=== PATIENT | male | born 1975 | race African-American/Black ===

== ENCOUNTER 2016-06-16 22:13 | Emergency (ER) | payer OTHER ==
[~2016-06-16] VITALS: Ht 175.3 cm; Wt 65.7 kg
[~2016-06-16 22:13] MED LIST: MOTRIN800 MG PO
[2016-06-16 22:39] LABS: HEMATOCRIT 42.9 % (38.0-50.0); MCH 23.3 PG (29.0-34.0); MCHC 32.6 G/DL (30.0-36.0); MCV 71.4 FL (86-99); MEAN PLAT.VOLUME 8.9 uM^3 (9.0-12.4); PLATELET COUNT 240 K/uL (156-360); RBC DIS.WIDTH-CV 15.7 % (11.8-14.6); RBC DIS.WIDTH-SD 39.9 % (39-53); RED BLOOD COUNT 6.01 M/uL (4.00-5.50); WHITE BLOOD COUNT 6.5 K/uL (4.1-10.2)
[2016-06-16 22:42] LABS: EOSINOPHIL (%) 1.1 % (0-5); EOSINOPHIL COUNT 0.1 K/uL (0-0.3); IMMATURE GRANULOCYTE (%) 0.2 % (0.0-0.7); IMMATURE GRANULOCYTE COUNT 0.1 K/uL; LYMPHOCYTE COUNT 3.2 K/uL (1.0-2.8); MONOCYTE (%) 8.6 % (3-12); MONOCYTE COUNT 0.6 K/uL (0-0.8); NEUTROPHIL (%) 40.8 % (45-76); NEUTROPHIL COUNT 2.7 K/uL (1.8-6.4)
[2016-06-16 22:49] LABS: CHLORIDE 102 mEq/L (99-109); POTASSIUM 3.9 mEq/L (3.7-5.4); SODIUM 142 mEq/L (136-147)
[2016-06-16 22:51] LABS: GLUCOSE 76 mg/dL (70-99)
[2016-06-16 22:52] LABS: ANION GAP 11 MEQ/L (2-14)
[2016-06-16 22:53] LABS: TOTAL BILIRUBIN 1.1 mg/dL (0.0-1.0)
[2016-06-16 22:54] LABS: SERUM ETHYL ALCOHOL < 10 mg/dL
[2016-06-16 22:54] LABS: BASE EXCESS 3.2 mEq/L (-3 to +3); BICARBONATE 28.5 mEq/L (22-26); CARBOXY HGB 4.2 % (0-5); COMMENTS - BLOOD GASES NAC+MD AWARE; FI02 21 %; METHEMOGLOBIN 0.8 % (0-1.5); PCO2 45 mm Hg (35-45); PO2 102 mm Hg (80-100); SITE LR; TOTAL RESP RATE 14 resp/min; pH 7.41 (7.35-7.45)
[2016-06-16 22:55] LABS: ALKALINE PHOSPHATASE 61 IU/L (3-129); GFR ESTIMATE (CALCULATED) > 59 mL/min/
[2016-06-16 22:57] LABS: UREA NITROGEN (BUN) 10 mg/dL (9-23)
[2016-06-16 22:58] LABS: SALICYLATE < 5.0 MG/DL (15-30)
[2016-06-17 00:24] LABS: BILIRUBIN NEGATIVE; BLOOD NEGATIVE; COLOR YELLOW ((YELLOW)); GLUCOSE (STRIP) NEGATIVE; KETONES 20; LEUKOCYTES NEGATIVE; NITRITE NEGATIVE; PROTEIN (STRIP) 30; SPECIFIC GRAVITY 1.026 (1.000-1.030)
[2016-06-17 00:26] LABS: ADD MIUA? NO; UCUL ADDED? NO
[2016-06-17 00:32] LABS: PHENCYCLIDINE NEGATIVE (25 ng/mL); THC CANNABINOIDS PRESUMPTIVE POSITIVE (50 ng/mL)
[2016-06-17 00:33] LABS: ADD MEDTOX COMMENT Y; AMPHETAMINE NEGATIVE (500 ng/mL); BARBITURATES NEGATIVE (200 ng/mL); BENZODIAZEPINES PRESUMPTIVE POSITIVE (150 ng/mL); COCAINE NEGATIVE (150 ng/mL); INTERNAL CONTROLS VALID? YES; METHADONE NEGATIVE (200 ng/mL); METHAMPHETAMINE NEGATIVE (500 ng/mL); OPIATES (MORPHINE) NEGATIVE (100 ng/mL); OXYCODONE NEGATIVE (100 ng/mL); PROPOXYPHENE NEGATIVE (300 ng/mL); TRICYCLIC ANTIDEPRESSANTS PRESUMPTIVE POSITIVE (300 ng/mL)
[2016-06-17 01:53] LABS: BENZODIAZEPINES, URINE SCREEN POSITIVE (200 ng/mL)
[2016-06-17 05:10] VITALS: BP 129/79
== END 2016-06-17 05:21 | disposition home or self-care (01) ==
LOC: EME 22:13
PROVIDERS: Emergency Medicine
DX: T42.4X1A Poisoning by benzodiazepines, accidental (unintentional), initial encounter (principal); F31.9 Bipolar disorder, unspecified; I10 Essential (primary) hypertension; F17.200 Nicotine dependence, unspecified, uncomplicated
CPT/HCPCS: 36600; 70450; 71010; 80053; 81003; 82803; 84999; 85025; 90839; 93005; 99281; 99285; G0480; J7030

== ENCOUNTER 2017-02-22 13:17 | Emergency (ER) | payer OTHER ==
[~2017-02-22] VITALS: Ht 167.6 cm; Wt 64.7 kg
[2017-02-22] MEDS ORDERED: MOTRIN800 MG PO (15:08)
[2017-02-22 15:10] VITALS: BP 157/109
== END 2017-02-22 15:29 ==
LOC: EME 13:17
DX: S60.511A Abrasion of right hand, initial encounter (principal); M25.522 Pain in left elbow; W01.0XXA Fall on same level from slipping, tripping and stumbling without subsequent striking against object, initial encounter; F17.200 Nicotine dependence, unspecified, uncomplicated
CPT/HCPCS: 73080; 73130; 99281; 99284